=== PATIENT | female | born 1955 | race Asian ===

== ENCOUNTER 2017-01-20 15:08 | Emergency (ER) | payer OTHER ==
[~2017-01-20] VITALS: Ht 152.4 cm; Wt 62.5 kg
[2017-01-20 15:11] VITALS: BP 120/81
[2017-01-20] MEDS ORDERED: ASPIRIN 81 MG TABLET CHEW PO ONE (15:30)
[2017-01-20] MEDS ORDERED: ASPIRIN 81 MG TABLET CHEW ONE (15:42)
[2017-01-20 15:57] LABS: HEMATOCRIT 41.6 % (34.6-47.8); HEMOGLOBIN 14.2 g/dL (11.7-16.4)
[2017-01-20 16:04] LABS: BLOOD UREA NITROGEN 16 mg/dL (7-18)
[2017-01-20 16:11] LABS: ASPARTATE AMINO TRANSFERASE 16 U/L (15-37)
[2017-01-20 16:15] LABS: IS PT STATUS REG ER OR PRE ER? YES
== END 2017-01-20 16:46 | disposition home or self-care (01) ==
LOC: ED 16:26
DX: R07.2 Precordial pain (principal); I10 Essential (primary) hypertension; K21.9 Gastro-esophageal reflux disease without esophagitis; Z79.82 Long term (current) use of aspirin
CPT/HCPCS: 36415; 71010; 80053; 83690; 83735; 84484; 85025; 93005; 99285